=== PATIENT | male | born 1955 | race Hispanic/Latino ===

== ENCOUNTER 2018-09-08 17:45 | Inpatient (IN) | payer MEDICARE ==
--- NOTE | 2018-09-08 17:53 | Emergency Department Report ---
ED Neuro Deficit HPI - General Stated Complaint: NEURO ISSUES Time Seen by Provider: 09/08/18 17:48 - History of Present Illness Initial Comments: Patient is 63 years old male with history of hypertension, diabetes and congestive heart failure. Patient brought to the emergency room as a code stroke from patient Dr. coreas. Patient reported left facial droop, left upper extremity and lower extremity weakness started approximately 11 AM today. He stated the symptoms improved significantly brought at 3:50 PM his symptoms returned again. Patient also reports difficulty speaking. Patient denied any headache or neck pain. Patient examined by me immediately on EMS stretcher and rolled to CT suite for emergent CT brain. Stroke protocol initiated. Telemetry neurology immediately consulted. -: Sudden Location: speech, left arm, left leg Presenting Symptoms: Present: Weak/Paralyzed One Side, Facial Droop/Numbness, Unable to Speak Clearly History of same: No Place: home Quality: weak Context: sudden onset Associated Symptoms: denies other symptoms - Related Data Home Medications: Home Medications Medication Instructions Recorded Confirmed Last Taken Aspirin 81 mg PO DAILY 02/07/16 05/06/18 05/05/18 81mg Finasteride [Proscar] 5 mg PO QDAY 02/07/16 05/06/18 05/05/18 5mg Insulin Regular, Human [HumuLIN R] 25 unit SQ BID 02/07/16 05/06/18 05/06/18 05:00 Nitroglycerin [Nitrostat] 0.4 mg SL Q5M PRN 02/07/16 11/29/16 Unknown Multivitamin Tab [Multiple Vitamin 1 each PO QDAY 11/29/16 05/06/18 05/05/18 TAB (Theragran)] 1 tab Ferrous Sulfate [Feosol 325 MG tab] 325 mg PO DAILY 05/06/18 05/06/18 05/06/18 05:00 ISOSORBIDE MONOnitrate [Imdur ER] 30 mg PO DAILY 05/06/18 05/06/18 05/04/18 30mg Potassium 99 mg PO DAILY 05/06/18 05/06/18 05/05/18 99mg Ubidecarenone [Coenzyme Q-10] 100 mg PO DAILY 05/06/18 05/06/18 05/05/18 1 tab Previous Rx's Medication Instructions Recorded Last Taken Type Furosemide [Lasix TAB] 20 mg PO QDAY #30 tablet 02/09/16 05/06/18 05:00 Rx 20mg Lisinopril [Zestril TAB] 5 mg PO QDAY 30 Days tablet 02/09/16 05/06/18 05:00 Rx 5mg Metoprolol [Lopressor TAB] 25 mg PO BID 30 Days tablet 02/09/16 05/06/18 05:00 Rx 25mg AtorvaSTATin [Lipitor] 40 mg PO QHS #90 tablet 05/07/18 Unknown Rx Clopidogrel [Plavix] 75 mg PO QDAY #90 tablet 05/07/18 Unknown Rx Allergies/Adverse Reactions: Allergies Allergy/AdvReac Type Severity Reaction Status Date / Time No Known Allergies Allergy Verified 11/29/16 08:50 ED Review of Systems ROS: Stated complaint: NEURO ISSUES Other details as noted in HPI Comment: All other systems reviewed and negative Constitutional: denies: chills, fever Respiratory: denies: cough, orthopnea, shortness of breath, SOB with exertion, SOB at rest, wheezing Cardiovascular: denies: chest pain, palpitations Gastrointestinal: denies: abdominal pain, nausea, vomiting, diarrhea, constipation, hematemesis, melena, hematochezia Musculoskeletal: denies: back pain Neurological: weakness. denies: headache, numbness, paresthesias, confusion, abnormal gait ED Past Medical Hx - Past Medical History Hx Hypertension: Yes Hx Heart Attack/AMI: Yes (2015) Hx Congestive Heart Failure: Yes Hx Diabetes: Yes Hx Asthma: No Hx COPD: No Additional medical history: CAD. OBESITY. ANEMIA - Surgical History Hx Coronary Stent: Yes (x2) Additional Surgical History: RIGHT INNER THIGH. HX SURGERY SPERMATIC CORD EXC ISION OF HYDROCELE - Social History Smoking Status: Former Smoker - Medications Home Medications: Home Medications Medication Instructions Recorded Confirmed Last Taken Type Aspirin 81 mg PO DAILY 02/07/16 05/06/18 05/05/18 History 81mg Finasteride [Proscar] 5 mg PO QDAY 02/07/16 05/06/18 05/05/18 History 5mg Insulin Regular, Human [HumuLIN R] 25 unit SQ BID 02/07/16 05/06/18 05/06/18 05:00 History Nitroglycerin [Nitrostat] 0.4 mg SL Q5M PRN 02/07/16 11/29/16 Unknown History Furosemide [Lasix TAB] 20 mg PO QDAY #30 tablet 02/09/16 05/06/18 05/06/18 05:00 Rx 20mg Lisinopril [Zestril TAB] 5 mg PO QDAY 30 Days tablet 02/09/16 05/06/18 05/06/18 05:00 Rx 5mg Metoprolol [Lopressor TAB] 25 mg PO BID 30 Days tablet 02/09/16 05/06/18 05/06/18 05:00 Rx 25mg Multivitamin Tab [Multiple Vitamin 1 each PO QDAY 11/29/16 05/06/18 05/05/18 History TAB (Theragran)] 1 tab Ferrous Sulfate [Feosol 325 MG tab] 325 mg PO DAILY 05/06/18 05/06/18 05/06/18 05:00 History ISOSORBIDE MONOnitrate [Imdur ER] 30 mg PO DAILY 05/06/18 05/06/18 05/04/18 History 30mg Potassium 99 mg PO DAILY 05/06/18 05/06/18 05/05/18 History 99mg Ubidecarenone [Coenzyme Q-10] 100 mg PO DAILY 05/06/18 05/06/18 05/05/18 History 1 tab AtorvaSTATin [Lipitor] 40 mg PO QHS #90 tablet 05/07/18 Unknown Rx Clopidogrel [Plavix] 75 mg PO QDAY #90 tablet 05/07/18 Unknown Rx ED Neuro Physical Exam - General Limitations: No Limitations General appearance: alert, in no apparent distress Suspected Stroke: Yes - Head Head exam: Present: atraumatic, normocephalic, normal inspection - Eye Eye exam: Present: normal appearance, PERRL - ENT ENT exam: Present: normal exam, normal orophraynx, mucous membranes moist - Neck Neck exam: Present: normal inspection, full ROM. Absent: tenderness, menin gismus, lymphadenopathy, thyromegaly - Respiratory Respiratory exam: Present: normal lung sounds bilaterally - Cardiovascular Cardiovascular Exam: Present: regular rate, normal rhythm, normal heart sounds - GI/Abdominal GI/Abdominal exam: Present: soft, normal bowel sounds. Absent: distended, tenderness, guarding, rebound, rigid, organomegaly, mass, pulsatile mass - Back Exam Back exam: Present: normal inspection, full ROM. Absent: CVA tenderness (R), CVA tenderness (L), muscle spasm, paraspinal tenderness, vertebral tenderness - Neurological Exam Neurological exam: Present: alert, oriented X3, motor sensory deficit. Absent: CN II-XII intact - NIHSS Assessment Interval: Baseline 1a. Level of Consciousness: alert/keenly responsive 1b. LOC Questions: answers both correctly 1c. LOC Commands: performs tasks correctly 2. Best Gaze: normal 3. Visual: no visual loss 4. Facial Palsy: minor paralysis 5b. Motor Arm Right: no drift 5a. Motor Arm Left: drift 6a. Motor Leg Left: drift 6b. Motor Leg Right: no drift 7. Limb Ataxia: absent 8. Sensory: mild/moderate sensory loss 9. Best Language: mild/moderate aphasia 10. Dysarthria: mild/moderate dysarthria 11. Extinction/Inattention: no abnormality Total Score: 6 Stroke Severity: Moderate Stroke - Psychiatric Psychiatric exam: Present: normal mood. Absent: agitated, anxious, flat affect, manic, homicidal ideation, suicidal ideation - Skin Skin exam: Present: warm, intact, normal color ED Course Vital Signs 09/08/18 09/08/18 09/08/18 17:45 18:05 18:16 Temperature 98.0 F Pulse Rate 85 85 Respiratory 14 10 L Rate Blood Pressure 136/77 136/77 136/77 Blood Pressure [Left] O2 Sat by Pulse 96 98 96 Oximetry 09/08/18 09/08/18 09/08/18 18:30 18:31 18:46 Temperature Pulse Rate 86 83 Respiratory 22 18 18 Rate Blood Pressure 136/77 119/60 Blood Pressure [Left] O2 Sat by Pulse 96 100 96 Oximetry 09/08/18 09/08/18 09/08/18 19:00 19:16 19:46 Temperature Pulse Rate 84 88 Respiratory 10 L 14 Rate Blood Pressure 119/60 109/51 109/51 Blood Pressure [Left] O2 Sat by Pulse 97 96 97 Oximetry 09/08/18 09/08/18 09/08/18 20:00 20:15 20:16 Temperature 98.2 F Pulse Rate 80 82 Respiratory 20 20 Rate Blood Pressure 138/73 143/68 Blood Pressure 137/70 144/73 [Left] O2 Sat by Pulse 96 99 98 Oximetry 09/08/18 09/08/18 09/08/18 20:30 20:45 20:46 Temperature Pulse Rate 84 79 Respiratory 20 20 Rate Blood Pressure 144/73 141/67 Blood Pressure 153/72 141/67 [Left] O2 Sat by Pulse 99 98 96 Oximetry 09/08/18 09/08/18 09/08/18 21:00 21:15 21:30 Temperature Pulse Rate Respiratory Rate Blood Pressure 140/65 130/68 132/67 Blood Pressure [Left] O2 Sat by Pulse 98 94 94 Oximetry 09/08/18 09/08/18 21:45 22:00 Temperature Pulse Rate Respiratory Rate Blood Pressure 130/68 138/70 Blood Pressure [Left] O2 Sat by Pulse 95 95 Oximetry - Consultations Consultation #1: 09/08/18 18:18 I discussed the patient with Dr. Roa, from telemetry neurology. He examined the patient several video conference. He indicated that patient is not a TPA candidate because of the onset of the symptoms is more than 4.5 hours. He recommended CTA neck and CTA head and admission for a stroke workup. Please refer to neurologist documentation for further information. 09/08/18 18:20 - Lab Data Result diagrams: 09/08/18 19:21 09/08/18 18:02 Lab Results 09/08/18 09/08/18 09/08/18 Range/Units 18:02 18:02 18:02 WBC TNR RBC TNR Hgb TNR Hct TNR MCV TNR MCH TNR MCHC TNR RDW TNR Plt Count TNR Lymph % (Auto) TNR Dent % (Auto) TNR Eos % (Auto) TNR Baso % (Auto) TNR Lymph # TNR Dent # TNR Eos # TNR Baso # TNR Add Manual Diff TNR Seg Neutrophils % TNR Seg Neutrophils # TNR PT TNR INR TNR APTT TNR Thrombin Time (15.1-19.6) Sec. Sodium 134 L (137-145) mmol/L Potassium 5.2 H (3.6-5.0) mmol/L Chloride 102.4 (98-107) mmol/L Carbon Dioxide 18 L (22-30) mmol/L Anion Gap 19 mmol/L BUN 25 H (9-20) mg/dL Creatinine 0.8 (0.8-1.5) mg/dL Estimated GFR > 60 ml/min BUN/Creatinine Ratio 31 % Glucose 387 H (75-100) mg/dL Calcium 8.8 (8.4-10.2) mg/dL Troponin T < 0.010 (0.00-0.029) ng/mL 09/08/18 09/08/18 Range/Units 19:11 19:21 WBC 8.0 RBC 3.99 Hgb 13.3 Hct 38.4 MCV 96 H MCH 33 H MCHC 35 H RDW 13.6 Plt Count 188 Lymph % (Auto) 31.0 Dent % (Auto) 8.6 H Eos % (Auto) 2.3 Baso % (Auto) 0.5 Lymph # 2.5 Dent # 0.7 Eos # 0.2 Baso # 0.0 Add Manual Diff Seg Neutrophils % 57.6 Seg Neutrophils # 4.6 PT 12.3 INR 0.87 APTT 22.4 L Thrombin Time 16.8 (15.1-19.6) Sec. Sodium (137-145) mmol/L Potassium (3.6-5.0) mmol/L Chloride (98-107) mmol/L Carbon Dioxide (22-30) mmol/L Anion Gap mmol/L BUN (9-20) mg/dL Creatinine (0.8-1.5) mg/dL Estimated GFR ml/min BUN/Creatinine Ratio % Glucose (75-100) mg/dL Calcium (8.4-10.2) mg/dL Troponin T (0.00-0.029) ng/mL - Radiology Data Radiology results: report reviewed Referring Physician: BRADLY CONTE Patient Name: SHAUN OSBORN Date of : 1955 Sex: Male Report Date: 2018-09-08 Report Status: Finalized Findings [facility] [address] [place] [address] Cat Scan Report Signed Patient: SHAUN OSBORN MR#: [id number] : 1955 Acct:[id number] Age/Sex: 63 / M ADM Date: 09/08/18 Loc: ED Attending Dr: Ordering Physician: BRADLY CONTE Date of Service: 09/08/18 Procedure(s): CT head/brain wo con Accession Number(s): [id number] cc: MOHAMED H. ELBASHA PROCEDURE: CT HEAD/BRAIN WO CON TECHNIQUE: CT images of the head were obtained without the use of IV contrast HISTORY: neuro deficits <6hrs or sx present upon awakening COMPARISONS: None available FINDINGS: There is no CT evidence of intracranial mass, hemorrhage, acute territorial infarction, or hydrocephalus. The intracranial arteries are symmetric in density. Calvarium is intact. There is minimal bilateral maxillary sinus mucosal thickening. Mastoids are aerated. IMPRESSION: No CT evidence of acute intracranial abnormality. This document is electronically signed by Mamta Jerez MD., September 08 2018 06:08:19 PM ET Transcribed By: [facility] Dictated By: MAMTA JEREZ M.D. Electronically Authenticated By: MAMTA JEREZ M.D. Signed Date/Time: 09/08/181809 DD/ 04 TD/TT: 09/08/181804 - Medical Decision Making Patient is 63 years old male with history of hypertension, diabetes and congestive heart failure. Patient brought to the emergency room as a code stroke from patient Dr. coreas. Patient reported left facial droop, left upper extremity and lower extremity weakness started approximately 11 AM today. He stated the symptoms improved significantly brought at 3:50 PM his symptoms re turned again. Patient also reports difficulty speaking. Patient denied any headache or neck pain. Patient examined by me immediately on EMS stretcher and rolled to CT suite for emergent CT brain. Stroke protocol initiated. Patient examined by telemetry neurology and advised patient is not a TPA candidate. CTA neck and CTA brain is negative for acute finding. I discussed the patient is Dr. Janelle Jackson, she agreed to admit the patient to medical service for stroke workup. - Thrombolytic Inclusion/Exclusion Thrombolytic Exclusion Criteria: Symptom Onset > 3 Hours Critical Care Time: Yes Critical care time in (mins) excluding proc time.: 30 Critical care attestation.: If time is entered above; I have spent that time in minutes in the direct care of this critically ill patient, excluding procedure time. ED Disposition Clinical Impression: Stroke Disposition: DC-09 OP ADMIT IP TO THIS HOSP Is pt being admited?: Yes Condition: Stable
--- NOTE | 2018-09-08 18:10 | Cat Scan Report ---
PROCEDURE: CT HEAD/BRAIN WO CON TECHNIQUE: CT images of the head were obtained without the use of IV contrast HISTORY: neuro deficits <6hrs or sx present upon awakening COMPARISONS: None available FINDINGS: There is no CT evidence of intracranial mass, hemorrhage, acute territorial infarction, or hydrocepha keanu. The intracranial arteries are symmetric in density. Calvarium is intact. There is minimal bilate ral maxillary sinus mucosal thickening. Mastoids are aerated. IMPRESSION: No CT evidence of acute intracranial abnormality. This document is electronically signed by Mamta Jerez MD., September 08 2018 06:08:19 PM ET
--- NOTE | 2018-09-08 18:14 | Emergency Department Report ---
ED Neuro Deficit HPI - General Stated Complaint: NEURO ISSUES Time Seen by Provider: 09/08/18 17:48 Limitations: No Limitations - History of Present Illness Initial Comments: [facility] Date of service: 09/08/18 Impression: acute L hemiparesis - concerning for R frontal vs subcortical stroke. No cortical signs, favoring subcortical infarct. - - - Not a tpa candidate due to: LKN >4.5 hours. Differential Diagnosis: 1. Cardioembolic stroke 2. Small vessel disease/lacune 3. Thromboembolic, [id number] mechanism 4. Hypercoagulable state-related infarct 5. Transient ischemic attack 6. Thrombotic mechanism, large artery disease Comments: Door time: 1745 [employer] contacted: 1739 [employer] at bedside: 1748 NIHSS assessment time: 1803 Recommendations: CTA head/neck ASA if CT head is neg for hemorrhage -none per my read. DVT proph - lovenox permissive htn PT/OT/speech bedside swallow eval Inpatient neurology consultation Inpatient stroke evaluation as per Neurology/ Internal Medicine Discussed with ED MD Please call with questions --------- CC left sided weakness History of Present Illness Patient is a 63 yo man with acute onset dizziness/lightheadedness and slurred speech starting today at approx 1100. The slurred speech and L facial droop has persisted. He also notes that he has left sided weakness. No LOC/convulsion. No language deficit. Diagnostic: CT head neg for hemorrhage per my read. Exam: RESULT SUMMARY: 7 points NIH Stroke Scale INPUTS: 1A: Level of consciousness > 0 = Alert; keenly responsive 1B: Ask month and age > 0 = Both questions right 1C: 'Blink eyes' & 'squeeze hands' > 0 = Performs both tasks 2: Horizontal extraocular movements > 0 = Normal 3: Visual saeed > 0 = No visual loss 4: Facial palsy > 2 = Partial paralysis (lower face) 5A: Left arm motor drift > 2 = Some effort against gravity 5B: Right arm motor drift > 0 = No drift for 10 seconds 6A: Left leg motor drift > 3 = No effort against gravity 6B: Right leg motor drift > 0 = No drift for 5 seconds 7: Limb Ataxia > 0 = No ataxia 8: Sensation > 0 = Normal; no sensory loss 9: Language/aphasia > 0 = Normal; no aphasia 10: Dysarthria > 0 = Normal 11: Extinction/inattention > 0 = No abnormality Medical Decision Making: - Extensive number of diagnosis or management options are considered above. - Extensive amount of complex data reviewed. - High risk of complication and/or morbidity or mortality are associated with differential diagnostic considerations above. - There may be Uncertain outcome and increased probability of prolonged functional impairment or high probability of severe prolonged functional impairment associated with some of these differential diagnosis. Medical Data Reviewed: 1.Data reviewed include clinical labs, radiology, Medical Tests; 2.Tests results discussed w/performing or interpreting physician; 3.Obtaining/reviewing old medical records; 4.Obtaining case history from another source; 5.Independent review of image, tracing or specimen. Patient was informed the Neurology Consult would happen via telehealth (remote video) and consented to receiving care in this manner. Location: speech, left arm, left leg History of same: No Place: home Quality: weak - Related Data Home Medications: Home Medications Medication Instructions Recorded Confirmed Last Taken Aspirin 81 mg PO DAILY 02/07/16 05/06/18 05/05/18 81mg Finasteride [Proscar] 5 mg PO QDAY 02/07/16 05/06/18 05/05/18 5mg Insulin Regular, Human [HumuLIN R] 25 unit SQ BID 02/07/16 05/06/18 05/06/18 05:00 Nitroglycerin [Nitrostat] 0.4 mg SL Q5M PRN 02/07/16 11/29/16 Unknown Multivitamin Tab [Multiple Vitamin 1 each PO QDAY 11/29/16 05/06/18 05/05/18 TAB (Theragran)] 1 tab Ferrous Sulfate [Feosol 325 MG tab] 325 mg PO DAILY 05/06/18 05/06/18 05/06/18 05:00 ISOSORBIDE MONOnitrate [Imdur ER] 30 mg PO DAILY 05/06/18 05/06/18 05/04/18 30mg Potassium 99 mg PO DAILY 05/06/18 05/06/18 05/05/18 99mg Ubidecarenone [Coenzyme Q-10] 100 mg PO DAILY 05/06/18 05/06/18 05/05/18 1 tab Previous Rx's Medication Instructions Recorded Last Taken Type Furosemide [Lasix TAB] 20 mg PO QDAY #30 tablet 02/09/16 05/06/18 05:00 Rx 20mg Lisinopril [Zestril TAB] 5 mg PO QDAY 30 Days tablet 02/09/16 05/06/18 05:00 Rx 5mg Metoprolol [Lopressor TAB] 25 mg PO BID 30 Days tablet 02/09/16 05/06/18 05:00 Rx 25mg AtorvaSTATin [Lipitor] 40 mg PO QHS #90 tablet 05/07/18 Unknown Rx Clopidogrel [Plavix] 75 mg PO QDAY #90 tablet 05/07/18 Unknown Rx Allergies/Adverse Reactions: Allergies Allergy/AdvReac Type Severity Reaction Status Date / Time No Known Allergies Allergy Verified 11/29/16 08:50 ED Review of Systems ROS: Stated complaint: NEURO ISSUES Other details as noted in HPI Constitutional: denies: chills, fever Respiratory: denies: cough, orthopnea, shortness of breath, SOB with exertion, SOB at rest, wheezing Cardiovascular: denies: chest pain, palpitations Gastrointestinal: denies: abdominal pain, nausea, vomiting, diarrhea, constipation, hematemesis, melena, hematochezia Musculoskeletal: denies: back pain Neurological: weakness. denies: headache, numbness, paresthesias, confusion, abnormal gait ED Past Medical Hx - Past Medical History Hx Hypertension: Yes Hx Heart Attack/AMI: Yes (2015) Hx Congestive Heart Failure: Yes Hx Diabetes: Yes Hx Asthma: No Hx COPD: No Additional medical history: CAD. OBESITY. ANEMIA - Surgical History Hx Coronary Stent: Yes (x2) Additional Surgical History: RIGHT INNER THIGH. HX SURGERY SPERMATIC CORD EXCISION OF HYDROCELE - Social History Smoking Status: Former Smoker - Medications Home Medications: Home Medications Medication Instructions Recorded Confirmed Last Taken Type Aspirin 81 mg PO DAILY 02/07/16 05/06/18 05/05/18 History 81mg Finasteride [Proscar] 5 mg PO QDAY 02/07/16 05/06/18 05/05/18 History 5mg Insulin Regular, Human [HumuLIN R] 25 unit SQ BID 02/07/16 05/06/18 05/06/18 05:00 History Nitroglycerin [Nitrostat] 0.4 mg SL Q5M PRN 02/07/16 11/29/16 Unknown History Furosemide [Lasix TAB] 20 mg PO QDAY #30 tablet 02/09/16 05/06/18 05/06/18 05:00 Rx 20mg Lisinopril [Zestril TAB] 5 mg PO QDAY 30 Days tablet 02/09/16 05/06/18 05/06/18 05:00 Rx 5mg Metoprolol [Lopressor TAB] 25 mg PO BID 30 Days tablet 02/09/16 05/06/18 05/06/18 05:00 Rx 25mg Multivitamin Tab [Multiple Vitamin 1 each PO QDAY 11/29/16 05/06/18 05/05/18 History TAB (Theragran)] 1 tab Ferrous Sulfate [Feosol 325 MG tab] 325 mg PO DAILY 05/06/18 05/06/18 05/06/18 05:00 History ISOSORBIDE MONOnitrate [Imdur ER] 30 mg PO DAILY 05/06/18 05/06/18 05/04/18 History 30mg Potassium 99 mg PO DAILY 05/06/18 05/06/18 05/05/18 History 99mg Ubidecarenone [Coenzyme Q-10] 100 mg PO DAILY 05/06/18 05/06/18 05/05/18 History 1 tab AtorvaSTATin [Lipitor] 40 mg PO QHS #90 tablet 05/07/18 Unknown Rx Clopidogrel [Plavix] 75 mg PO QDAY #90 tablet 05/07/18 Unknown Rx ED Neuro Physical Exam - General Limitations: No Limitations General appearance: alert, in no apparent distress Suspected Stroke: Yes - NIHSS Assessment Interval: Baseline 1a. Level of Consciousness: alert/keenly responsive 1b. LOC Questions: answers both correctly 1c. LOC Commands: performs tasks correctly 2. Best Gaze: normal 3. Visual: no visual loss 4. Facial Palsy: partial paralysis 5b. Motor Arm Right: no drift 5a. Motor Arm Left: some gravity effort 6a. Motor Leg Left: no gravity effort 6b. Motor Leg Right: no drift 7. Limb Ataxia: absent 8. Sensory: normal 9. Best Language: no aphasia 10. Dysarthria: mild/moderate dysarthria 11. Extinction/Inattention: no abnormality Total Score: 8 Stroke Severity: Moderate Stroke Critical care attestation.: If time is entered above; I have spent that time in minutes in the direct care of this critically ill patient, excluding procedure time. ED Disposition Clinical Impression: Stroke Disposition: DC-09 OP ADMIT IP TO THIS HOSP Is pt being admited?: Yes Condition: Stable
[2018-09-08 18:28] LABS: BUN/Creatinine Ratio 31; Blood Urea Nitrogen 25 mg/dL (9-20); Calcium 8.8 mg/dL (8.4-10.2); Hemolysis Index 144
[2018-09-08 18:37] LABS: Hemoglobin TNR gm/dl (11.8-15.2); Red Blood Count TNR M/mm3 (3.65-5.03)
[2018-09-08 18:38] LABS: Hematocrit TNR % (35.5-45.6); Mean Corpuscular HGB Conc TNR % (32-34); Mean Corpuscular Volume TNR fl (84-94)
[2018-09-08 18:39] LABS: Eosinophils % (Auto) TNR % (0.0-4.3); Lymphocytes % (Auto) TNR % (13.4-35.0); Mean Platelet Volume TNR fl (6-12); Monocytes % (Auto) TNR % (0.0-7.3); Platelet Count TNR K/mm3 (140-440); Red Cell Distribution Width TNR % (13.2-15.2)
[2018-09-08 18:40] LABS: Basophils # (Auto) TNR K/mm3 (0.0-0.1); Basophils % (Auto) TNR % (0.0-1.8); Eosinophils # (Auto) TNR K/mm3 (0.0-0.4); Lymphocytes # (Auto) TNR K/mm3 (1.2-5.4); Monocytes # (Auto) TNR K/mm3 (0.0-0.8)
[2018-09-08 18:51] LABS: INR TNR (0.87-1.13)
[2018-09-08 18:52] LABS: Partial Thromboplastin Time TNR Sec. (24.2-36.6)
[2018-09-08 19:26] LABS: Basophils % (Auto) 0.5 % (0.0-1.8); Eosinophils # (Auto) 0.2 K/mm3 (0.0-0.4); Eosinophils % (Auto) 2.3 % (0.0-4.3); Hematocrit 38.4 % (35.5-45.6); Hemoglobin 13.3 gm/dl (11.8-15.2); Lymphocytes # (Auto) 2.5 K/mm3 (1.2-5.4); Mean Corpuscular HGB Conc 35 % (32-34); Mean Corpuscular Volume 96 fl (84-94); Monocytes # (Auto) 0.7 K/mm3 (0.0-0.8); Monocytes % (Auto) 8.6 % (0.0-7.3); Platelet Count 188 K/mm3 (140-440); Red Blood Count 3.99 M/mm3 (3.65-5.03); Red Cell Distribution Width 13.6 % (13.2-15.2)
[2018-09-08 19:32] LABS: INR 0.87 (0.87-1.13); Partial Thromboplastin Time 22.4 Sec. (24.2-36.6)
[2018-09-08 19:40] LABS: Thrombin Time 16.8 Sec. (15.1-19.6)
[2018-09-08] MEDS ORDERED: HumuLIN R IV ONE (20:50)
--- NOTE | 2018-09-08 21:29 | Cat Scan Report ---
PROCEDURE: CT ANGIO NECK TECHNIQUE: Computerized tomographic angiography of the neck was performed after the IV injection of iodinated nonionic contrast including image processing. The image data was postprocessed using 2-dime nsional multiplanar reformatted (MPR) and 3-dimensional (MIP and/or volume rendered) techniques. CT DOSE LENGTH PRODUCT: 833.1 mGycm HISTORY: stroke COMPARISONS: None . Note: Assessment of carotid artery stenosis is based on measurement of the distal internal carotid a rtery diameter as the denominator for stenosis calculations and the [place] Symptomatic Caroti d Endarterectomy Trial (NASCET) stenosis criteria. FINDINGS: Sinuses: Mild mucosal thickening . Non vascular cervical structures: No significant abnormality . Aortic arch: Normal . Right carotid artery: Mild, less than 50%, narrowing at the carotid bifurcation. Left carotid artery: Mild, less than 50%, narrowing at the carotid bifurcation. . Vertebral arteries: Dominant left vertebral artery . IMPRESSION: Mild, less than 50%, narrowing. No high-grade stenosis. This document is electronically signed by Magan Winn MD., September 08 2018 09:27:39 PM ET
--- NOTE | 2018-09-08 21:40 | Cat Scan Report ---
PROCEDURE: CT ANGIO HEAD TECHNIQUE: Computerized tomographic angiography of the head was performed after the IV injection of iodinated nonionic contrast including image processing. The image data was postprocessed using 2-dim ensional multiplanar reformatted (MPR) and 3-dimensional (MIP and/or volume rendered) techniques. CT DOSE LENGTH PRODUCT: mGycm HISTORY: stroke COMPARISONS: None . FINDINGS: Cerebrum: No evidence of hemorrhage, acute ischemia or mass . Cerebellum: No evidence of hemorrhage, acute ischemia or mass . Subarachnoid spaces and ventricles: Normal . Intracranial vessels: Carotid siphon: Normal . Anterior cerebral: Normal . Middle cerebral: Normal . Posterior cerebral: Normal . Vertebral arteries including basilar: Normal . Dominant left vertebral artery. Aneurysms: None . Dural sinuses: Normal. IMPRESSION: Normal Examination . This document is electronically signed by Magan Winn MD., September 08 2018 09:38:37 PM ET
[2018-09-08] MEDS ORDERED: MILK OF MAGNESIA PO PRN (22:34)
[2018-09-08] MEDS ORDERED: TYLENOL PO PRN (22:34)
[2018-09-08] MEDS ORDERED: SODIUM CHLORIDE FLUSH SYRINGE 10 ML IV PRN (22:34)
[2018-09-08] MEDS ORDERED: DULCOLAX PR PRN (22:34)
[2018-09-08] MEDS ORDERED: ZOFRAN IV PRN (22:34)
--- NOTE | 2018-09-08 22:39 | History and Physical Report ---
History of Present Illness Date of examination: 09/08/18 History of present illness: 63 year-old man with a history of hypertension, diabetes, hyperlipidemia, coronary artery disease, CHF comes emergency room with complaints for speech and left side. His symptoms started when he went to visit a fine, he then went home and watch TV, he symptoms resolved. He went out to eat with his grandson, he developed a left facial droop, left-sided weakness and felt dizzy. The patient came to the emergency room for further evaluation Review of systems Constitutional: no weight loss, chills, fever Ears, eyes, nose, mouth and throat: no nasal congestion, no nasal discharge, no sinus pressure, no vision change, no red eye. Neck: No neck pain or rigidity. Cardiovascular: no palpitations, chest pain Respiratory: no cough, shortness of breath Gastrointestinal: no hematochezia, abdominal pain Genitourinary : no frequency , no hematuria Musculoskeletal: no joint swelling or muscle ache Integumentary: no rash, no pruritis Neurological: no parathesias, +focal weakness Endocrine: no cold or heat intolerance, no polyuria or polydipsia Hematologic/Lymphatic: no easy bruising, no easy bleeding, no gland swelling Allergic/Immunologic: no urticaria, no angioedema. PAST MEDICAL HISTORY:hypertension, diabetes, hyperlipidemia, coronary artery disease, CHF PAST SURGICAL HISTORY: Hernia repair, left foot SOCIAL HISTORY: Denies tobacco, drugs, social alcohol FAMILY HISTORY:CAD Medications and Allergies Allergies Allergy/AdvReac Type Severity Reaction Status Date / Time No Known Allergies Allergy Verified 11/29/16 08:50 Home Medications Medication Instructions Recorded Confirmed Last Taken Type Aspirin 81 mg PO DAILY 02/07/16 09/08/18 05/05/18 History 81mg Finasteride [Proscar] 5 mg PO QDAY 02/07/16 09/08/18 05/05/18 History 5mg Insulin Regular, Human [HumuLIN R] 25 unit SQ BID 02/07/16 09/08/18 05/06/18 05:00 History Nitroglycerin [Nitrostat] 0.4 mg SL Q5M PRN 02/07/16 09/08/18 Unknown History Furosemide [Lasix TAB] 20 mg PO QDAY #30 tablet 02/09/16 09/08/18 05/06/18 05:00 Rx 20mg Lisinopril [Zestril TAB] 5 mg PO QDAY 30 Days tablet 02/09/16 09/08/18 05/06/18 05:00 Rx 5mg Metoprolol [Lopressor TAB] 25 mg PO BID 30 Days tablet 02/09/16 09/08/18 05/06/18 05:00 Rx 25mg Multivitamin Tab [Multiple Vitamin 1 each PO QDAY 11/29/16 09/08/18 05/05/18 History TAB (Theragran)] 1 tab Ferrous Sulfate [Feosol 325 MG tab] 325 mg PO DAILY 05/06/18 09/08/18 05/06/18 05:00 History ISOSORBIDE MONOnitrate [Imdur ER] 30 mg PO DAILY 05/06/18 09/08/18 05/04/18 History 30mg Potassium 99 mg PO DAILY 05/06/18 09/08/18 05/05/18 History 99mg Ubidecarenone [Coenzyme Q-10] 100 mg PO DAILY 05/06/18 09/08/18 05/05/18 History 1 tab AtorvaSTATin [Lipitor] 40 mg PO QHS #90 tablet 05/07/18 09/08/18 Unknown Rx Clopidogrel [Plavix] 75 mg PO QDAY #90 tablet 05/07/18 09/08/18 Unknown Rx Active Meds: Active Medications Acetaminophen (Tylenol) 650 mg PO Q4H PRN PRN Reason: Pain, Mild (1-3) Aspirin (Aspirin) 325 mg PO QDAY CADY Atorvastatin Calcium (Lipitor) 40 mg PO QHS CADY Bisacodyl (Dulcolax) 10 mg [place] QDAY PRN PRN Reason: Constipation Enoxaparin Sodium (Lovenox) 40 mg SUB-Q QDAY CADY Magnesium Hydroxide (Milk Of Magnesia) 30 ml PO Q4H PRN PRN Reason: Constipation Ondansetron HCl (Zofran) 4 mg IV Q8H PRN PRN Reason: Nausea And Vomiting Sodium Chloride (Sodium Chloride Flush Syringe 10 Ml) 10 ml INJ PRN PRN PRN Reason: LINE FLUSH Exam - Physical Exam Narrative exam: Gen. appearance: Patient lying in bed, no apparent distress HEENT: Normocephalic, atraumatic, pupils equally round and reactive to light, extraocular movement intact, and no sclericterus,. No JVD or thyromegaly or nodule,neck supple, no carotid bruit ,mucous membranes moist, no exudate or erythema Heart: S1, S2, regular rate and rhythm Lungs: Clear to auscultation bilaterally, breathing comfortable Abdomen: Positive bowel sounds, nontender, nondistended, no organomegaly Extremity: No edema, cyanosis, clubbing Skin: No rash, nodules, warm, dry Neuro: Oriented 3, cranial nerves II-12 intact, speech is fluent, motor, left upper and lower extremity 4/5, and sensory intact - Constitutional Vitals: Temp Pulse Resp BP Pulse Ox 98.2 F 79 20 138/70 95 09/08/18 20:00 09/08/18 20:45 09/08/18 20:45 09/08/18 22:00 09/08/18 22:00 Results - Labs CBC & Chem 7: 09/08/18 19:21 09/08/18 18:02 Labs: Abnormal lab results 09/08/18 09/08/18 09/08/18 Range/Units 18:02 19:11 19:21 MCV 96 H (84-94) fl MCH 33 H (28-32) pg MCHC 35 H (32-34) % [place] % (Auto) 8.6 H (0.0-7.3) % APTT 22.4 L (24.2-36.6) Sec. Sodium 134 L (137-145) mmol/L Potassium 5.2 H (3.6-5.0) mmol/L Carbon Dioxide 18 L (22-30) mmol/L BUN 25 H (9-20) mg/dL Glucose 387 H (75-100) mg/dL - Imaging and Cardiology CT Scan - head: report reviewed Assessment and Plan CTA head and neck reviewed Assessment Acute CVA Coronary artery disease CHF, stable Hypertension Diabetes Hyperlipidemia Obesity Plan Admit to medicine Obtain MRI of the head and neck, echo Do neuro checks, as well as cocaine Consult cardiology, physical occupational therapy Start aspirin, statin, IV hydralazine for blood pressure control Fingersticks initiate insulin sliding scale Check cardiac enzymes Continue outpatient medications DVT prophylaxis
[2018-09-09 00:01] LABS: Creatine Kinase MB 2.5 ng/mL (0.0-4.0)
[2018-09-09] MEDS ORDERED: APRESOLINE IV PRN (02:19)
[2018-09-09 06:19] LABS: Creatine Kinase MB 2.7 ng/mL (0.0-4.0)
[2018-09-09 06:21] LABS: Chol/HDL Ratio 4.33 %
[2018-09-09] MEDS: LASIX PO SCH (09:05)
[2018-09-09] MEDS: PLAVIX PO SCH (09:05)
[2018-09-09] MEDS: PROSCAR PO SCH (09:05)
[2018-09-09] MEDS: THERAGRAN Tab PO SCH (09:05)
[2018-09-09] MEDS: LOVENOX SUB-Q SCH (09:05)
[2018-09-09] MEDS: BABY ASPIRIN PO SCH (09:06)
[2018-09-09] MEDS: FEOSOL PO SCH (09:06)
[2018-09-09] MEDS ORDERED: ASPIRIN PO SCH (10:00)
[2018-09-09] MEDS ORDERED: UBIDECARENONE 100 MG PO SCH (10:00)
[2018-09-09] MEDS ORDERED: ATIVAN IV ONE (10:30)
--- NOTE | 2018-09-09 14:04 | Progress Note ---
Assessment and Plan Assessment and plan: Acute iscjhemic stroke, most likely patient has left sided weakness MRI Brain ordered but he could not fit in scanner due to obesity neurology to evaluate Aspirin Plavix Lipitor CAD stable No chest pain Cont Plavix Hypertension Monitor BP Hyperlipidemia Chronic CHF Full code History Interval history: Left sided weakness Hospitalist Physical - Physical exam Narrative exam: Gen: Not in acute distress, lying in bed,obese HEENT: Normocephalic, atraumatic Neck: supple, no JVD Heart: S1 and S2 reg, no murmurs, rubs or gallop Lungs: Clear to auscultation, no crackles Abd: soft, non tender, non distended, normal BS Ext: No edema, no clubbing, no cyanosis, Neuro: AAO x 3, left sided weakness 4/5 Psych:Normal mood - Constitutional Vitals: Temp Pulse Resp BP Pulse Ox 98.2 F 89 18 139/64 99 09/09/18 13:42 09/09/18 13:25 09/09/18 13:25 09/09/18 13:25 09/09/18 13:25 Results - Labs CBC & Chem 7: 09/09/18 13:42 09/09/18 13:42 Labs: Laboratory Last Values WBC 8.0 K/mm3 (4.5-11.0) 09/08/18 19:21 RBC 3.99 M/mm3 (3.65-5.03) 09/08/18 19:21 Hgb 13.3 gm/dl (11.8-15.2) 09/08/18 19:21 Hct 38.4 % (35.5-45.6) 09/08/18 19:21 MCV 96 fl (84-94) H 09/08/18 19:21 MCH 33 pg (28-32) H 09/08/18 19:21 MCHC 35 % (32-34) H 09/08/18 19:21 RDW 13.6 % (13.2-15.2) 09/08/18 19:21 Plt Count 188 K/mm3 (140-440) 09/08/18 19:21 Lymph % (Auto) 31.0 % (13.4-35.0) 09/08/18 19:21 [place] % (Auto) 8.6 % (0.0-7.3) H 09/08/18 19:21 Eos % (Auto) 2.3 % (0.0-4.3) 09/08/18 19:21 Baso % (Auto) 0.5 % (0.0-1.8) 09/08/18 19:21 Lymph # 2.5 K/mm3 (1.2-5.4) 09/08/18 19:21 [place] # 0.7 K/mm3 (0.0-0.8) 09/08/18 19:21 Eos # 0.2 K/mm3 (0.0-0.4) 09/08/18 19:21 Baso # 0.0 K/mm3 (0.0-0.1) 09/08/18 19:21 Add Manual Diff TNR 09/08/18 18:02 Seg Neutrophils % 57.6 % (40.0-70.0) 09/08/18 19:21 Seg Neutrophils # 4.6 K/mm3 (1.8-7.7) 09/08/18 19:21 PT 12.3 Sec. (12.2-14.9) 09/08/18 19:11 INR 0.87 (0.87-1.13) 09/08/18 19:11 APTT 22.4 Sec. (24.2-36.6) L 09/08/18 19:11 Thrombin Time 16.8 Sec. (15.1-19.6) 09/08/18 19:11 Sodium 134 mmol/L (137-145) L 09/08/18 18:02 Potassium 5.2 mmol/L (3.6-5.0) H 09/08/18 18:02 Chloride 102.4 mmol/L (98-107) 09/08/18 18:02 Carbon Dioxide 18 mmol/L (22-30) L 09/08/18 18:02 Anion Gap 19 mmol/L 09/08/18 18:02 BUN 25 mg/dL (9-20) H 09/08/18 18:02 Creatinine 0.8 mg/dL (0.8-1.5) 09/08/18 18:02 Estimated GFR > 60 ml/min 09/08/18 18:02 BUN/Creatinine Ratio 31 % 09/08/18 18:02 Glucose 387 mg/dL (75-100) H 09/08/18 18:02 POC Glucose 340 (70-105) H 09/09/18 13:32 Calcium 8.8 mg/dL (8.4-10.2) 09/08/18 18:02 Total Creatine Kinase 44 units/L (55-170) L 09/09/18 05:30 CK-MB (CK-2) 2.7 ng/mL (0.0-4.0) 09/09/18 05:30 CK-MB (CK-2) Rel Index 6.1 (0-4) H 09/09/18 05:30 Troponin T < 0.010 ng/mL (0.00-0.029) 09/09/18 05:30 Triglycerides 231 mg/dL (2-149) H 09/09/18 05:30 Cholesterol 143 mg/dL (50-199) 09/09/18 05:30 LDL Cholesterol Direct 94 mg/dL (50-130) 09/09/18 05:30 HDL Cholesterol 33 mg/dL (40-59) L 09/09/18 05:30 Cholesterol/HDL Ratio 4.33 % 09/09/18 05:30 Active Medications - Current Medications Current Medications: Generic Name Dose Route Start Last Admin Trade Name Freq PRN Reason Stop Dose Admin Acetaminophen 650 mg 09/08/18 22:34 Tylenol PO Q4H PRN Pain, Mild (1-3) Aspirin 81 mg 09/09/18 10:00 09/09/18 09:06 Baby Aspirin PO 81 mg DAILY CADY Administration Atorvastatin Calcium 40 mg 09/09/18 22:00 Lipitor PO QHS CADY Bisacodyl 10 mg 09/08/18 22:34 Dulcolax [place] QDAY PRN Constipation Clopidogrel Bisulfate 75 mg 09/09/18 10:00 09/09/18 09:05 Plavix PO 75 mg QDAY CADY Administration Enoxaparin Sodium 40 mg 09/09/18 10:00 09/09/18 09:05 Lovenox SUB-Q 40 mg QDAY CADY Administration Ferrous Sulfate 325 mg 09/09/18 10:00 09/09/18 09:06 Feosol PO 325 mg DAILY CADY Administration Finasteride 5 mg 09/09/18 10:00 09/09/18 09:05 Proscar PO 5 mg QDAY CADY Administration Furosemide 20 mg 09/09/18 10:00 09/09/18 09:05 Lasix PO 20 mg QDAY CADY Administration Hydralazine HCl 5 mg 09/09/18 02:19 Apresoline IV Q6H PRN Hypertension Magnesium Hydroxide 30 ml 09/08/18 22:34 Milk Of Magnesia PO Q4H PRN Constipation Miscellaneous Medication 100 mg 09/09/18 10:00 Ubidecarenone [Coenzyme Q-10] PO DAILY [facility] Multivitamins 1 each 09/09/18 10:00 09/09/18 09:05 Theragran Tab PO 1 each QDAY CADY Administration Ondansetron HCl 4 mg 09/08/18 22:34 Zofran IV Q8H PRN Nausea And Vomiting Sodium Chloride 10 ml 09/08/18 22:34 Sodium Chloride Flush Syringe 10 Ml IV PRN PRN LINE FLUSH
[2018-09-09 14:29] LABS: Hematocrit 39.9 % (35.5-45.6); Hemoglobin 13.7 gm/dl (11.8-15.2); Mean Corpuscular HGB Conc 35 % (32-34); Mean Corpuscular Volume 96 fl (84-94); Platelet Count 173 K/mm3 (140-440); Red Blood Count 4.14 M/mm3 (3.65-5.03); Red Cell Distribution Width 13.7 % (13.2-15.2)
[2018-09-09 14:51] LABS: BUN/Creatinine Ratio 23; Blood Urea Nitrogen 18 mg/dL (9-20); Hemolysis Index 9
[2018-09-09] MEDS ORDERED: HumuLIN R SUB-Q SCH (15:00)
[2018-09-09] MEDS: XANAX PO PRN (22:19)
[2018-09-10] MEDS: PLAVIX PO SCH (09:18)
[2018-09-10] MEDS: BABY ASPIRIN PO SCH (09:18)
[2018-09-10] MEDS: LASIX PO SCH (09:18)
[2018-09-10] MEDS: THERAGRAN Tab PO SCH (09:18)
[2018-09-10] MEDS: FEOSOL PO SCH (09:18)
[2018-09-10] MEDS: PROSCAR PO SCH (09:19)
[2018-09-10] MEDS: LOVENOX SUB-Q SCH (09:19)
--- NOTE | 2018-09-10 15:06 | Cat Scan Report ---
CT HEAD WITH CONTRAST: HISTORY: Left sided weakness. TECHNIQUE: Sequential 2.5mm CT images following IV contrast. COMPARISON: Noncontrast CT brain dated 09/08/18. FINDINGS: Cerebral Parenchyma: An approximate 1.5 cm focus of diminished attenuation has developed in the right yap radiata which is best demonstrated on image 33. This has the appearance of a subacute focal infarct. The remaining brain parenchyma is within normal limits. No abnormal enhancement is demonstrated. Cerebellum: Within normal limits. Brainstem: Within normal limits. Ventricles: Normal. Sella: Normal. Extra-axial spaces: Normal. Basal Cisterns: Normal. Intracranial Hemorrhage: None. Midline Shift: None. Calvarium: Normal. Sinuses: Mild mucosal thickening in the inferior maxillary sinuses. The remaining sinuses are well-aerated. Mastoid Air Cells: Normal. Visualized Orbits: Normal. IMPRESSION: 1.5 cm subacute ischemic infarct is now identified in the right yap radiata.
--- NOTE | 2018-09-10 15:28 | Progress Note ---
Assessment and Plan Assessment and plan: Acute iscjhemic stroke, patient has left sided weakness, dipak improving MRI Brain ordered but he could not fit in scanner due to obesity CT Head with contrast confirms stroke Aspirin Plavix Lipitor CAD stable No chest pain Cont Plavix Hypertension Monitor BP Hyperlipidemia Chronic CHF Full code PT recommends acute rehab. case management working on it. History Interval history: Left sided weakness improving Hospitalist Physical - Physical exam Narrative exam: Gen: Not in acute distress, lying in bed,obese HEENT: Normocephalic, atraumatic Neck: supple, no JVD Heart: S1 and S2 reg, no murmurs, rubs or gallop Lungs: Clear to auscultation, no crackles Abd: soft, non tender, non distended, normal BS Ext: No edema, no clubbing, no cyanosis, Neuro: AAO x 3, left sided weakness 4/5 Psych:Normal mood - Constitutional Vitals: Temp Pulse Resp BP Pulse Ox 97.4 F L 91 H 18 151/67 99 09/10/18 10:32 09/10/18 09:26 09/10/18 09:26 09/10/18 09:26 09/10/18 09:26 Results - Labs CBC & Chem 7: 09/09/18 13:42 09/09/18 13:42 Labs: Laboratory Last Values WBC 6.2 K/mm3 (4.5-11.0) 09/09/18 13:42 RBC 4.14 M/mm3 (3.65-5.03) 09/09/18 13:42 Hgb 13.7 gm/dl (11.8-15.2) 09/09/18 13:42 Hct 39.9 % (35.5-45.6) 09/09/18 13:42 MCV 96 fl (84-94) H 09/09/18 13:42 MCH 33 pg (28-32) H 09/09/18 13:42 MCHC 35 % (32-34) H 09/09/18 13:42 RDW 13.7 % (13.2-15.2) 09/09/18 13:42 Plt Count 173 K/mm3 (140-440) 09/09/18 13:42 Lymph % (Auto) 31.0 % (13.4-35.0) 09/08/18 19:21 [place] % (Auto) 8.6 % (0.0-7.3) H 09/08/18 19:21 Eos % (Auto) 2.3 % (0.0-4.3) 09/08/18 19:21 Baso % (Auto) 0.5 % (0.0-1.8) 09/08/18 19:21 Lymph # 2.5 K/mm3 (1.2-5.4) 09/08/18 19:21 [place] # 0.7 K/mm3 (0.0-0.8) 09/08/18 19:21 Eos # 0.2 K/mm3 (0.0-0.4) 09/08/18 19:21 Baso # 0.0 K/mm3 (0.0-0.1) 09/08/18 19:21 Add Manual Diff TNR 09/08/18 18:02 Seg Neutrophils % 57.6 % (40.0-70.0) 09/08/18 19:21 Seg Neutrophils # 4.6 K/mm3 (1.8-7.7) 09/08/18 19:21 PT 12.3 Sec. (12.2-14.9) 09/08/18 19:11 INR 0.87 (0.87-1.13) 09/08/18 19:11 APTT 22.4 Sec. (24.2-36.6) L 09/08/18 19:11 Thrombin Time 16.8 Sec. (15.1-19.6) 09/08/18 19:11 Sodium 137 mmol/L (137-145) 09/09/18 13:42 Potassium 4.9 mmol/L (3.6-5.0) 09/09/18 13:42 Chloride 98.6 mmol/L (98-107) 09/09/18 13:42 Carbon Dioxide 23 mmol/L (22-30) 09/09/18 13:42 Anion Gap 20 mmol/L 09/09/18 13:42 BUN 18 mg/dL (9-20) 09/09/18 13:42 Creatinine 0.8 mg/dL (0.8-1.5) 09/09/18 13:42 Estimated GFR > 60 ml/min 09/09/18 13:42 BUN/Creatinine Ratio 23 % 09/09/18 13:42 Glucose 409 mg/dL (75-100) H 09/09/18 13:42 POC Glucose 250 (70-105) H 09/10/18 12:13 Hemoglobin A1c 11.0 % (4-6) H 09/09/18 18:42 Calcium 9.0 mg/dL (8.4-10.2) 09/09/18 13:42 Total Creatine Kinase 44 units/L (55-170) L 09/09/18 05:30 CK-MB (CK-2) 2.7 ng/mL (0.0-4.0) 09/09/18 05:30 CK-MB (CK-2) Rel Index 6.1 (0-4) H 09/09/18 05:30 Troponin T < 0.010 ng/mL (0.00-0.029) 09/09/18 05:30 Triglycerides 231 mg/dL (2-149) H 09/09/18 05:30 Cholesterol 143 mg/dL (50-199) 09/09/18 05:30 LDL Cholesterol Direct 94 mg/dL (50-130) 09/09/18 05:30 HDL Cholesterol 33 mg/dL (40-59) L 09/09/18 05:30 Cholesterol/HDL Ratio 4.33 % 09/09/18 05:30 Active Medications - Current Medications Current Medications: Generic Name Dose Route Start Last Admin Trade Name Freq PRN Reason Stop Dose Admin Acetaminophen 650 mg 09/08/18 22:34 Tylenol PO Q4H PRN Pain, Mild (1-3) Alprazolam 0.5 mg 09/09/18 21:26 09/09/18 22:19 Xanax PO 0.5 mg Q8H PRN Administration Anxiety Aspirin 81 mg 09/09/18 10:00 09/10/18 09:18 Baby Aspirin PO 81 mg DAILY CADY Administration Atorvastatin Calcium 40 mg 09/09/18 22:00 09/09/18 22:19 Lipitor PO 40 mg QHS CADY Administration Bisacodyl 10 mg 09/08/18 22:34 Dulcolax [place] QDAY PRN Constipation Clopidogrel Bisulfate 75 mg 09/09/18 10:00 09/10/18 09:18 Plavix PO 75 mg QDAY CADY Administration Enoxaparin Sodium 40 mg 09/09/18 10:00 09/10/18 09:19 Lovenox SUB-Q 40 mg QDAY CADY Administration Ferrous Sulfate 325 mg 09/09/18 10:00 09/10/18 09:18 Feosol PO 325 mg DAILY CADY Administration Finasteride 5 mg 09/09/18 10:00 09/10/18 09:19 Proscar PO 5 mg QDAY CADY Administration Furosemide 20 mg 09/09/18 10:00 09/10/18 09:18 Lasix PO 20 mg QDAY CADY Administration Hydralazine HCl 5 mg 09/09/18 02:19 Apresoline IV Q6H PRN Hypertension Insulin Human Isoph/Insulin Regular 25 unit 09/09/18 18:00 09/10/18 09:19 Humulin 70/30 SUB-Q 25 unit BIDDIAB CADY Administration Magnesium Hydroxide 30 ml 09/08/18 22:34 Milk Of Magnesia PO Q4H PRN Constipation Multivitamins 1 each 09/09/18 10:00 09/10/18 09:18 Theragran Tab PO 1 each QDAY CADY Administration Ondansetron HCl 4 mg 09/08/18 22:34 Zofran IV Q8H PRN Nausea And Vomiting Sodium Chloride 10 ml 09/08/18 22:34 Sodium Chloride Flush Syringe 10 Ml IV PRN PRN LINE FLUSH
[2018-09-10] MEDS: XANAX PO PRN (21:06)
[2018-09-11 08:47] VITALS: BP 150/102
[2018-09-11] MEDS: BABY ASPIRIN PO SCH (09:07)
[2018-09-11] MEDS: LASIX PO SCH (09:07)
[2018-09-11] MEDS: PROSCAR PO SCH (09:07)
[2018-09-11] MEDS: FEOSOL PO SCH (09:07)
[2018-09-11] MEDS: PLAVIX PO SCH (09:07)
[2018-09-11] MEDS: THERAGRAN Tab PO SCH (09:07)
[2018-09-11] MEDS: LOVENOX SUB-Q SCH (09:08)
--- NOTE | 2018-09-11 12:53 | Discharge Summary ---
Providers - Providers Date of Admission: 09/08/18 22:35 Date of discharge: 09/11/18 Attending physician: NANCY CARDOZA 09/08/18 22:35 Occupational Therapy Evaluate and Treat [CONS] Routine Comment: Reason For Exam: Neuro deficits Physical Therapy Evaluation and Treat [CONS] Routine Comment: Reason For Exam: Neuro deficits 09/10/18 12:22 Consult Acute Rehabilitation [CONS] Routine Consulting Provider: Physician Instructions: Reason For Exam: IRU Evaluation 09/10/18 13:03 Consult to Physician [CONS] Routine Comment: Consulting Provider: TONI QUINTANA Physician Instructions: Reason For Exam: Left sided weakness, likely stroke [facility] Condition: Fair Hospital course: Patient is 63 yo with hypertension, diabetes, hyperlipidemia, coronary artery disease, chronic CHF presented with difficulty with speech, facial droop and left sided weakness. He was seen and evaluated in Emergency Department. CT head was done was unremarkable. He was given Aspirin and admitted for possibile stroke. He was unable to do an MRI because of morbid obesity. CT of the head with contrast was done following day confirmed ischemic stroke on the right yap radiata. Patient was on Aspirin 81mg prior to admission and this was increased to aspirin 325mg. He was on Plavix which was continued. PT/OT evaluations were done and acute rehab was recommended. Dementia made by case management on patient discharged to acute rehabilitation Unit on 09/11/18. On discharge, he still had dysarthria, left sided weakness. Total time spent on discharge, 32 mins Disposition: [id number] INPT REHAB FACILITY - Discharge Diagnoses (1) Acute ischemic stroke Status: Acute (2) IDDM (insulin dependent diabetes mellitus) Status: Acute (3) BPH (benign prostatic hyperplasia) Status: Chronic Qualifiers: Lower urinary tract symptom presence: symptoms present Lower urinary tract symptom detail: urinary hesitancy Qualified Code(s): N40.1 - Benign prostatic hyperplasia with lower urinary tract symptoms; R39.11 - Hesitancy of micturition (4) CAD (coronary artery disease) Status: Chronic Qualifiers: Coronary Disease-Associated Artery/Lesion type: [place] artery [place] vs. transplanted heart: [place] heart (5) HLD (hyperlipidemia) Status: Chronic Qualifiers: Hyperlipidemia type: mixed hyperlipidemia Qualified Code(s): E78.2 - Mixed hyperlipidemia (6) HTN (hypertension) Status: Chronic Qualifiers: Hypertension type: essential hypertension Qualified Code(s): I10 - Essential (primary) hypertension (7) Chronic systolic (congestive) heart failure Status: Acute Core Measure Documentation - Palliative Care Palliative Care/ Comfort Measures: Not Applicable - Core Measures Any of the following diagnoses?: heart failure, stroke - Heart Failure Discharge Requirements ROCAEL/ARB for LVSD if EF <40%: Not Applicable Beta steve at discharge: Yes - Stroke Discharge Requirements Statin for LDL = or >70 mg/dl on DC: Yes Anticoag for atrial fib/atrial flutter: Not Applicable Antithrombotic for ischemic stroke: Yes Exam - Physical Exam Narrative exam: Gen: Not in acute distress, lying in bed,obese HEENT: Normocephalic, atraumatic Neck: supple, no JVD Heart: S1 and S2 reg, no murmurs, rubs or gallop Lungs: Clear to auscultation, no crackles Abd: soft, non tender, non distended, normal BS Ext: No edema, no clubbing, no cyanosis, Neuro: AAO x 3, left sided weakness 4/5. dysartria Psych:Normal mood - Constitutional Vitals: Temp Pulse Resp BP Pulse Ox 98.6 F 119 H 20 150/102 97 09/11/18 08:02 09/11/18 08:02 09/11/18 08:04 09/11/18 08:02 09/11/18 08:02 Plan Activity: advance as tolerated Diet: low fat, low cholesterol, low salt, diabetic Follow up with: VICKY ZAMORANO MD [Primary Care Provider] - 3-5 Days Prescriptions: Aspirin EC [Aspirin Enteric Coated TAB] 325 mg PO QDAY #30 tablet.
[2018-09-11] MEDS ORDERED: LOPRESSOR PO SCH (13:00)
[2018-09-11] MEDS ORDERED: IMDUR PO SCH (13:00)
[2018-09-11] MEDS: LOPRESSOR IV STA ×2 (13:32→13:41)
--- NOTE | 2018-09-11 13:58 | Progress Note ---
Subjective Date of service: 09/11/18 Interval history: stroke assessment doing well gave intructions on stroke risk factor reduction minimal left sided motor weaknerss Objective - Vital Sign Vital Signs - 12hr 09/11/18 09/11/18 09/11/18 04:37 08:02 08:04 Temperature 98.0 F 98.6 F Pulse Rate 105 H 119 H Respiratory 18 20 20 Rate Blood Pressure 158/66 150/102 O2 Sat by Pulse 98 97 Oximetry - Laboratory Findings CBC and BMP: 09/09/18 13:42 09/09/18 13:42 Abnormal Lab Findings: Abnormal Labs 09/08/18 09/08/18 09/08/18 18:02 19:11 19:21 MCV 96 H MCH 33 H MCHC 35 H [place] % (Auto) 8.6 H APTT 22.4 L Sodium 134 L Potassium 5.2 H Carbon Dioxide 18 L BUN 25 H Glucose 387 H POC Glucose Hemoglobin A1c Total Creatine Kinase CK-MB (CK-2) Rel Index Triglycerides HDL Cholesterol 09/08/18 09/08/18 09/09/18 22:19 23:09 05:30 MCV MCH MCHC [place] % (Auto) APTT Sodium Potassium Carbon Dioxide BUN Glucose POC Glucose 289 H Hemoglobin A1c Total Creatine Kinase 49 L CK-MB (CK-2) Rel Index 5.1 H Triglycerides 231 H HDL Cholesterol 33 L 09/09/18 09/09/18 09/09/18 05:30 08:17 13:32 MCV MCH MCHC [place] % (Auto) APTT Sodium Potassium Carbon Dioxide BUN Glucose POC Glucose 348 H 340 H Hemoglobin A1c Total Creatine Kinase 44 L CK-MB (CK-2) Rel Index 6.1 H Triglycerides HDL Cholesterol 09/09/18 09/09/18 09/09/18 13:42 13:42 18:42 MCV 96 H MCH 33 H MCHC 35 H [place] % (Auto) APTT Sodium Potassium Carbon Dioxide BUN Glucose 409 H POC Glucose Hemoglobin A1c 11.0 H Total Creatine Kinase CK-MB (CK-2) Rel Index Triglycerides HDL Cholesterol 09/09/18 09/10/18 09/10/18 20:55 07:59 12:13 MCV MCH MCHC [place] % (Auto) APTT Sodium Potassium Carbon Dioxide BUN Glucose POC Glucose 297 H 207 H 250 H Hemoglobin A1c Total Creatine Kinase CK-MB (CK-2) Rel Index Triglycerides HDL Cholesterol 09/10/18 09/11/18 09/11/18 21:24 07:28 12:29 MCV MCH MCHC [place] % (Auto) APTT Sodium Potassium Carbon Dioxide BUN Glucose POC Glucose 291 H 280 H 267 H Hemoglobin A1c Total Creatine Kinase CK-MB (CK-2) Rel Index Triglycerides HDL Cholesterol
== END 2018-09-11 13:30 | DRG 65 ==
LOC: ED 17:45 → 4A 22:35
PROVIDERS: ADMIT Internal Medicine; ATTEND Internal Medicine
DX: I63.9 Cerebral infarction, unspecified (principal); G81.94 Hemiplegia, unspecified affecting left nondominant side; I50.22 Chronic systolic (congestive) heart failure; E11.9 Type 2 diabetes mellitus without complications; I10 Essential (primary) hypertension; R29.810 Facial weakness; I11.0 Hypertensive heart disease with heart failure; I25.10 Atherosclerotic heart disease of native coronary artery without angina pectoris; N40.0 Benign prostatic hyperplasia without lower urinary tract symptoms; E78.2 Mixed hyperlipidemia; E66.01 Morbid (severe) obesity due to excess calories; Z68.38 Body mass index [BMI] 38.0-38.9, adult; Z79.82 Long term (current) use of aspirin; Z79.899 Other long term (current) drug therapy; I25.2 Old myocardial infarction; Z95.5 Presence of coronary angioplasty implant and graft; Z79.4 Long term (current) use of insulin; Z82.49 Family history of ischemic heart disease and other diseases of the circulatory system
CPT/HCPCS: 36415; 70450; 70460; 70496; 70498; 80048; 80061; 82550; 82553; 82962; 83036; 84484; 85025; 85027; 85610; 85670; 85730; 87116; 93005; 93010; 93306; 94760; G0378; A9270-GY; J1650; J1815; J2060; Q9967